=== PATIENT | female | born 1990 | race Caucasian/White ===

== ENCOUNTER → 2020-02-07 09:05 | Outpatient (BNVA) | payer OTHER, SELFPAY | PROVIDERS: Family Provider Nurse Practitioner Family; PCP Registered Nurse; Visit Provider Registered Nurse | DX: E03.9 Hypothyroidism, unspecified (principal); F32.89 Other specified depressive episodes | CPT/HCPCS: 84443 ==

== ENCOUNTER → 2020-03-01 11:02 | Outpatient (BNVA) | payer MEDICAID, SELFPAY | PROVIDERS: Family Provider Nurse Practitioner Family; PCP Registered Nurse; Visit Provider Obstetrics & Gynecology | DX: Z12.4 Encounter for screening for malignant neoplasm of cervix (principal); N64.3 Galactorrhea not associated with childbirth | CPT/HCPCS: 84146 ==

== ENCOUNTER 2020-11-01 08:37 | Outpatient (CLI) | payer OTHER, SELFPAY ==
--- NOTE | 2020-11-01 08:45 | US_ITS ---
WS: [id number] RIGHT UPPER QUADRANT ULTRASOUND HISTORY: K80.20 - Calculus of gallbladder without cholecystitis without obstruction COMPARISON: 09/05/2015 Liver: 15.6 cm in length. Normal size liver. No bile duct dilatation or mass. Gallbladder: Normally distended gallbladder. Previously described polyps are not identified. There ar e new stones within the gallbladder lumen which may be obscuring the polyps. No pericholecystic fluid . CBD: 0.3 cm Pancreas: Normal size and echogenicity. Right kidney: 11.1 cm in length. Normal size and echogenicity. No hydronephrosis or mass. Aorta and IVC: Unremarkable abdominal aorta and IVC. No ascites. US/US gall bladder 15781 IMPRESSION: 1. Cholelithiasis without evidence for acute cholecystitis. 2. Previously described gallbladder polyps are not identified. These may be ob scured by the stones.
== END 2020-11-01 08:38 | disposition home or self-care (01) ==
LOC: RAD 08:44
PROVIDERS: PCP Registered Nurse; Visit Provider Registered Nurse
DX: K80.20 Calculus of gallbladder without cholecystitis without obstruction (principal)
CPT/HCPCS: 76705

== ENCOUNTER → 2020-11-02 11:44 | Outpatient (BNVA) | payer OTHER, MEDICAID, SELFPAY | PROVIDERS: PCP Registered Nurse; Visit Provider Surgery | DX: Z01.812 Encounter for preprocedural laboratory examination (principal); K21.9 Gastro-esophageal reflux disease without esophagitis; K80.20 Calculus of gallbladder without cholecystitis without obstruction | CPT/HCPCS: 87635 ==

== ENCOUNTER 2020-11-07 10:34 | Day surgery (SDC) | payer OTHER, SELFPAY ==
[2020-11-07] VITALS (13 sets, daily range): BP systolic 115–142; BP diastolic 59–91; PULSE 66–105; RESP 16–21; TEMP 36.6–37.3; O2SAT 96–100
[2020-11-07 10:56] LABS: OR HCG Qualitative Urine Negative (Negative)
[2020-11-07] MEDS: sodium chloride 0.9% 1,000 ML 30 ML IV (11:03)
[2020-11-07] MEDS: famotidine 20 mg/2 mL INJ 40 MG IVP (11:04)
[2020-11-07] MEDS: midazolam 1 mg/mL INJ 2 mL 2 MG IVP (11:46)
[2020-11-07] MEDS: scopolamine 1.5 Patch 1 PATCH TRANSDERMA (11:47)
--- NOTE | 2020-11-07 11:57 | W.PM.OPSUD ---
Surgery/Procedure H&P Update DATE OF PROCEDURE: November 07, 2020 DATE H&P PERFORMED: 11/02/20 H&P UPDATE INFORMATION: I have reviewed H&P completed within last 30 days, I have examined patient prior to procedure and No changes to prior documentation PREOP DIAGNOSIS: Symptomatic cholelithiasis and epigastric pain PRIMARY INDICATION FOR PROCEDURE: The same PLANNED PROCEDURE: Operation Date: 11/07/20 11:45 Proposed Procedures p EGD 70208 [id number] K21.9 K80.20(Not Applicable) - Dilan Bustamante MD s Laparoscopic Cholecystectomy(Not Applicable) - Dilan Bustamante MD
[2020-11-07] MEDS: clindamycin 600 MG/50 ML PREMIX 100 MG IV (12:39)
[2020-11-07] MEDS: lidocaine 2% INJ 20 mL (13:14)
--- NOTE | 2020-11-07 13:25 | ANES.PREANE2 ---
Pre-Anesthetic Assessment Pre-Anesthetic Assessment: Height/Weight: Height 1.63 m Weight 79.379 kg Temp Pulse Resp BP Pulse Ox 98 F 98 20 H 142/91 100 11/07/20 11:01 11/07/20 11:01 11/07/20 11:01 11/07/20 11:01 11/07/20 11:01 Preop Diagnosis: Symptomatic cholelithiasis and epigastric pain Proposed Procedure: Operation Date: 11/07/20 11:45 Proposed Procedures p EGD [id number] K21.9 K80.20(Not Applicable) - Dilan Bustamante MD s Laparoscopic Cholecystectomy(Not Applicable) - Dilan Bustamante MD Was Beta Emily taken within 24 hours: N/A Last intake: Intake Last Liquid Date 11/06/20 Last Liquid Time 19:00 Last Solid Date 11/06/20 Last Solid Time 17:00 Social: Social History: No alcohol and No tobacco Exam: Pre-Anes Outpt Exam: alert, oriented x 3, clear to auscultation bilaterally and regular rate & rhythm Airway: Submandibular: WNL Cervical ROM: WNL MP: 2 Dentition: Full GI: GI: GERD Anesthetic Plan: ASA status: 2 Anesthesia: General Risk of > 500 ml blood loss (7ml/kg in children): No Meds/Allergies Current Medications: Current Medications Generic Name Dose Route Start Last Admin Trade Name Freq PRN Reason Stop Dose Admin Sodium Chloride 1,000 mls @ 30 ml s/hr 11/07/20 10:45 11/07/20 11:03 Sodium Chloride 0.9% IV 11/08/20 10:44 30 mls/hr .Q24H JG Administration PFSH Anesthesia PFSH: Medical History Depression Surgical History History of dilation and curettage (02/16/15) 10 Wk missed . Performed by Dr. Garcia at [facility] [place] in [place], [place] History of tonsillectomy and adenoidectomy (~2006) Age 17 Hx of section (11/26/18) Primary LTCS. Performed by Dr. Love at [facility] [place] in [place], [place] Family History Father Heart disease Hypercholesteremia Family/Other Breast cancer paternal aunt Grandmother Colon cancer paternal grandmother Social History Smoking and tobacco status: former smoker Quit status (tobacco): has quit using tobacco Former quit date comment: Was 1/2 ppd Alcohol intake: current Alcohol intake frequency: holidays/special occasions only Data Anesthesia Other Labs: Laboratory Results - last 48 hr 11/07/20 10:54 Urine HCG, Qual Negative Cardiac Studies: No Data to Display
--- NOTE | 2020-11-07 14:06 | PM.OP ---
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 Nola and Qi) Estimated blood loss (mL): 10 Condition: stable Disposition: same day Brief History: Plan of care; After thorough history physical examination and reviewing the chart and images with my personal intrepreatation.I counseled the patient for laparoscopic cholecystectomy possible open and intraoperative EGD as patient has been having epigastric pain concerning for underlying gastropathy, indications risks including but not limited injury to the common bile duct and/or other viscera,that may require potential future surgical interventions including but not limited to ERCP and or laparatomy that may include Hepatobiliary surgery.Benefits and alternatives all discussed with the patient, and patient did agree to proceed accordingly. All questions have been answered and all concerns have been addressed to patient's satisfaction. Rationale was carefully and clearly discussed with the patient.Appropriate informed consent have been reviewed and signed. Procedure: Patient was identified in the holding area and taken back to the operative suite, placed in supine position intubated by anesthesia . Time-out was done verifying the patient's name/date of /planned procedure and destination after the procedure, all were in agreement. SCDs confirmed to be functioning, preoperative antibiotics administered per protocol, and beta shanda protocol was confirmed. Patient was appropriately secured to the table, footboard was applied to the OR table, before prep and drape anesthesia was asked to tilt the table back and forth to make sure that the patient is appropriately secured and she was. Prep and drape of the abdomen was done under the usual sterile technique, followed by that supraumbilical skin incision,skin incision was done by a 11 blade knife, and stay sutures were applied to the fascia and Nagel trocar technique was used to enter the abdominal without injuring any abdominal viscera, started by low flow gas insufflation followed by a high flow, started with a 10 mm laparoscope and under direct vision there was no evidence of any injuries, the scope then switched to a 30? ,10 millimeter scope and under direct visualization 5 millimeter trocar was inserted in the epigastric region yet an inadvertent small and superficial tear was created towards the anterior surface of the liver medial to the falciform at the site of insertion of the trocar and that was cauterized immediately followed by placement of a piece of Surgicel. The insertion site was re adjusted towards the lateral region of the falciform ligament followed by two 5 mm trocars were inserted in the right upper quadrant that was done after injection of local lidocaine 2% at all incision sites. Gallbladder showed chronic cholecystitis with adhesions Patient was then positioned in the head up and tilted to the left dissection started by taking adhesions down using [place] forceps with heat, continued dissection until I identified the critical view of the cystic duct and cystic artery where seen connected to the gallbladder. Clips were applied on the cystic duct towards the common bile duct 1 towards the gallbladder then divided is in sharp scissors, 2 clips were then applied onto the cystic artery and 1 towards the gallbladder and divided by sharp scissors. It was an additional vessel that was clipped and divided Dissection was then carried along of the gallbladder from the gallbladder fossa using cautery as well as sharp dissection with heat energy. The gallbladder then was dissected out from the gallbladder fossa totally , cholecystectomy was then achieved and was placed in an Endo Catch bag and then retrieved from the Nagel trocar site under direct visualization using a 5 mm 30? scope through the epigastric trocar, specimen was then passed to the circulating nurse to go for permanent pathology,irrigation and hemostasis was done to the gallbladder fossa after hemostasis was secured,And a second look onto the left lobe of the liver which showed appropriate hemostasis and there was no bleeding. While the patient is still under anesthesia ,I scrubbed out and started introducing the EGD via the mouth under direct visualization.I was able to assess the esophagus stomach and duodenum till the second part. At this point patient was placed in supine position. GE junction at 40 cm from the incisors, the remaining of the findings were normal. The scope was retrieved under direct visualization and gas was deflated,no biopsies were obtained at that point. The procedure was done under the laparo endoscopic view Afterwards I scrubbed back in Final survey laparoscopy was done that showed no injuries.Suction irrigation was obtained The supra umbilical fascial defect was then closed using interrupted #1 PDS sutures using a fascial closure device ;Pedro Blanco under direct visualization Gas was allowed to deflate,Trocars were then taken out under direct vision there was no evidence of bleeding Specimen was passed to the circulating nurse for permanent pathology. No drains were placed and the supra umbilical incision as well as all trocar sites were closed by 3/0 Vicryl and 4-0 Monocryl to approximate the skin edges of the supraumbilical incision, dressing was applied in the form of surgical glue and the patient patient got extubated and was taken to recovery area in a stable condition. Count of sponges,needles and instruments were completed at the end of the procedure I was present for the whole entire procedure.
--- NOTE | 2020-11-07 14:54 | SUR.PHASEI ---
PT AWAKES TO VOICE BUT OTHER MILNER SLEEPS WITH SNORING, SATS 100% ON RA, PT C/O OF PAIN OF 4 WHEN QUESTIONED BUT THEN BACK TO SNORING, PT SHIVERING WARM BLANKETS X 4 TO PT, PT RESTLESS EARLIER AND TURNS SIDE TO SIDE, REPEATEDLY , VSS ABD SOFT AND SITES X 3 D/I NO DISTRESS NOTED WILL LET PT AWAKEN MORE AND HAVE LESS SHIVERING.
--- NOTE | 2020-11-07 16:11 | ANE.PACU2 ---
Inpatient post-anesthesia follow up: Airway intact: Yes Vital signs: Temperature 99.2 F Pulse Rate 97 Respiratory Rate 18 Blood Pressure 128/78 Pulse Oximetry 100 Oxygen Delivery Me thod Room Air Oxygen Flow Rate 8 Fraction of Inspir ed Oxygen Hydration adequate: Yes Nausea and vomiting: No Pain level: 1 Mental status: Baseline
[2020-11-07] MEDS: HYDROcodone-acetaminophen 5-325 mg Tablet 1 TAB PO (16:24)
== END 2020-11-07 17:35 | disposition home or self-care (01) ==
PROVIDERS: PCP Registered Nurse; Visit Provider Surgery
PROC: 0DJ08ZZ Inspection of Upper Intestinal Tract, Via Natural or Artificial Opening Endoscopic (ICD-10-PCS; CPT 43235; principal; 2020-11-07 11:45)
PROC: 0FT44ZZ Resection of Gallbladder, Percutaneous Endoscopic Approach (ICD-10-PCS; CPT 47562; 2020-11-07 11:45)
DX: K80.10 Calculus of gallbladder with chronic cholecystitis without obstruction (principal); K21.9 Gastro-esophageal reflux disease without esophagitis; Z87.891 Personal history of nicotine dependence; Z82.49 Family history of ischemic heart disease and other diseases of the circulatory system
CPT/HCPCS: 47562; 12345; 84703; 88304; J0131; J1100; J2250; J2405; J2550; J2704; J3010; J3490; J7030; J7611

== ENCOUNTER → 2020-11-20 15:47 | Outpatient (BNVA) | payer OTHER, SELFPAY | PROVIDERS: PCP Registered Nurse; Visit Provider Registered Nurse | DX: T81.49XA Infection following a procedure, other surgical site, initial encounter (principal) | CPT/HCPCS: 85025 ==

== ENCOUNTER → 2020-11-21 13:52 | Outpatient (BNVA) | payer OTHER, SELFPAY | PROVIDERS: PCP Registered Nurse; Visit Provider Registered Nurse | DX: G89.18 Other acute postprocedural pain (principal) | CPT/HCPCS: 87070; 87077; 87184 ==

== ENCOUNTER → 2021-03-14 14:10 | Outpatient (BNVA) | payer OTHER, SELFPAY | PROVIDERS: PCP Registered Nurse; Visit Provider Obstetrics & Gynecology | DX: N93.9 Abnormal uterine and vaginal bleeding, unspecified (principal); Z86.32 Personal history of gestational diabetes | CPT/HCPCS: 83036; 84146; 84443; 85025 ==

== ENCOUNTER → 2021-03-20 13:08 | Outpatient (BNVA) | payer OTHER, SELFPAY | PROVIDERS: PCP Registered Nurse; Visit Provider Obstetrics & Gynecology | DX: N85.2 Hypertrophy of uterus (principal); N93.9 Abnormal uterine and vaginal bleeding, unspecified; R93.89 Abnormal findings on diagnostic imaging of other specified body structures; Z97.5 Presence of (intrauterine) contraceptive device | CPT/HCPCS: 76830 ==

== ENCOUNTER → 2021-07-25 10:26 | Outpatient (BNVA) | payer OTHER, SELFPAY | PROVIDERS: PCP Registered Nurse; Visit Provider Registered Nurse | DX: R19.7 Diarrhea, unspecified (principal); F41.9 Anxiety disorder, unspecified | CPT/HCPCS: 80053; 82607; 84443; 85025 ==

== ENCOUNTER → 2021-07-31 11:41 | Outpatient (BNVA) | payer OTHER, SELFPAY | PROVIDERS: PCP Registered Nurse; Visit Provider Registered Nurse | DX: R19.7 Diarrhea, unspecified (principal) | CPT/HCPCS: 87177; 87209; 87506 ==

== ENCOUNTER 2021-08-08 10:38 | Outpatient (CLI) | payer OTHER, SELFPAY ==
--- NOTE | 2021-08-08 10:45 | XR_ITS ---
WS: [id number] KUB, AP view, 08/08/2021 Clinical Data: R19.7 - Diarrhea, unspecified Comparison: None. Findings: No abnormal intraabdominal masses or calcifications are seen. There is no dilatated small bowel or ev idence of obstruction. There is an IUD in the region of the uterus. The bladder is full. XR/XR KUB [id number] Impression: Negative KUB.
== END 2021-08-08 10:39 | disposition home or self-care (01) ==
PROVIDERS: PCP Registered Nurse; Visit Provider Registered Nurse
DX: R19.7 Diarrhea, unspecified (principal)
CPT/HCPCS: 74018

== ENCOUNTER → 2021-09-12 13:22 | Outpatient (BNVA) | payer OTHER, SELFPAY | PROVIDERS: PCP Registered Nurse; Visit Provider Registered Nurse | DX: Z20.822 Contact with and (suspected) exposure to COVID-19 (principal); R05.9 Cough, unspecified; J06.9 Acute upper respiratory infection, unspecified; H66.91 Otitis media, unspecified, right ear | CPT/HCPCS: 87635 ==

== ENCOUNTER → 2022-04-16 10:45 | Outpatient (BNVA) | payer OTHER, BC, MEDICAID, SELFPAY | PROVIDERS: PCP Registered Nurse; Visit Provider Obstetrics & Gynecology | DX: Z12.4 Encounter for screening for malignant neoplasm of cervix (principal); R63.5 Abnormal weight gain; R35.89 Other polyuria; N64.52 Nipple discharge | CPT/HCPCS: 83036; 84146; 84443; 87624 ==

== ENCOUNTER → 2022-05-01 10:43 | Outpatient (BNVA) | payer OTHER, BC, MEDICAID, SELFPAY | PROVIDERS: PCP Registered Nurse; Visit Provider Obstetrics & Gynecology | DX: N94.10 Unspecified dyspareunia (principal) | CPT/HCPCS: 76830; 76856 ==

== ENCOUNTER 2022-07-16 11:50 | Outpatient (CLI) | payer OTHER, BC, MEDICAID, SELFPAY ==
--- NOTE | 2022-07-16 12:15 | US_ITS ---
WS: [id number] THYROID ULTRASOUND HISTORY: R59.0 - Localized enlarged lymph nodes COMPARISON: None available. Right lobe: 1.8 cm x 2.1 cm x 4.6 cm (w x ap x l). Volume: 9.2 cm3. Normal size and echotexture. No significant are dominant nodules are present. Left lobe: 1.7 cm x 1.6 cm x 4.9 cm (w x ap x l). Volume: 6.9 cm3. Normal size thyroid. There is a cystic mass with low-level echoes in the superior pole measuring 1.9 x 1.9 x 2.5 cm. There is through transmission. No solid component or papillary projection. There is n o increased vascularity. Isthmus: 0.4 cm. US/US thyroid [id number] IMPRESSION: 1. Cystic mass superior pole LEFT thyroid with no solid or nodular components. 2. No suspicious thyroid masses.
== END 2022-07-16 11:51 | disposition home or self-care (01) ==
PROVIDERS: PCP Registered Nurse; Visit Provider Registered Nurse
DX: R59.0 Localized enlarged lymph nodes (principal); E07.9 Disorder of thyroid, unspecified
CPT/HCPCS: 76536

== ENCOUNTER → 2022-08-23 14:11 | Outpatient (BNVA) | payer OTHER, BC, MEDICAID, SELFPAY | PROVIDERS: PCP Registered Nurse; Visit Provider Nurse Practitioner Family | DX: R68.89 Other general symptoms and signs (principal); J20.8 Acute bronchitis due to other specified organisms; B96.89 Other specified bacterial agents as the cause of diseases classified elsewhere | CPT/HCPCS: 87400 ==

== ENCOUNTER → 2024-11-22 15:40 | Outpatient (BNVA) | payer OTHER, SELFPAY | PROVIDERS: PCP Registered Nurse; Visit Provider Nurse Practitioner Family | DX: J02.9 Acute pharyngitis, unspecified (principal); H65.03 Acute serous otitis media, bilateral | CPT/HCPCS: 87880 ==

== ENCOUNTER → 2025-01-31 11:29 | Outpatient (BNVA) | payer OTHER, SELFPAY | PROVIDERS: PCP Registered Nurse; Visit Provider Nurse Practitioner Family | DX: F41.9 Anxiety disorder, unspecified (principal); E78.5 Hyperlipidemia, unspecified; Z13.1 Encounter for screening for diabetes mellitus; I10 Essential (primary) hypertension | CPT/HCPCS: 80053; 80061; 83036; 84439; 84443; 84481; 85025 ==

== ENCOUNTER → 2025-04-11 11:58 | Outpatient (BNVA) | payer OTHER, SELFPAY | PROVIDERS: PCP Registered Nurse; Visit Provider Registered Nurse | DX: R50.9 Fever, unspecified (principal) | CPT/HCPCS: 87400; 87880 ==